=== PATIENT | male | born 1960 | race Caucasian/White ===

== ENCOUNTER 2022-08-25 11:48 | Emergency (ER) | payer BC ==
[2022-08-25] MEDS ORDERED: Alum Hydro/Mag Hydro/Simeth XS 15 ML, Lidocaine 2% 5 ML PO ONE ×2 (12:31)
[2022-08-25 12:47] LABS: CARBON DIOXIDE,CO2 30.9 mmol/L (21.0-32.0); POTASSIUM,K 3.3 mmol/L (3.5-5.1)
[2022-08-25] MEDS ORDERED: Cefepime 2 GM in Premix Bag 1 BAG IV SCH (14:00)
[2022-08-25] MEDS ORDERED: VANCOmycin 2 GM/400 ML 400 ML IV ONE (14:15)
[2022-08-25] MEDS ORDERED: Cefepime 2 GM in Sodium Chloride 0.9% 50 ML IV SCH (14:15)
== END 2022-08-25 16:28 ==
LOC: MW.ED 11:48
DX: S91.302A Unspecified open wound, left foot, initial encounter (principal); M72.6 Necrotizing fasciitis; M86.9 Osteomyelitis, unspecified
CPT/HCPCS: 36415; 73630-26-LT; 73630-LT; 80048; 83605; 85025; 87040; 96365; 96366; 96367; 99284-25; 99285; A9270-GY; J0692; J3370; J7050